=== PATIENT | female | born 1960 | race Caucasian/White ===

== ENCOUNTER 2018-01-02 08:46 | Emergency (ER) | payer BC, OTHER ==
[~2018-01-02] VITALS: Ht 157.5 cm; Wt 97.7 kg
[~2018-01-02 08:46] MED LIST: ADVAIR DISKUS1 DS1 IH; ALAVERT10 M1 PO; ALEVE220 MG PO; CATAFLAM50 MG PO; DESYREL 50MG50 MG PO; FLONASE NASAL S16 GM NS; MOBIC 7.5MG7.5 MG PO; PREMARIN0.9 MG PO; PROVENTIL0.09 MG/A1 IH; ZESTRIL2.5 MG PO
[2018-01-02 08:49] VITALS: BP 137/78; TEMP 98.7
[2018-01-02] MEDS ORDERED: LIPITOR 10MG10 MG PO (08:54)
[2018-01-02] MEDS ORDERED: GLUCOPHAGE500 MG/TAB PO (08:55)
[2018-01-02] MEDS ORDERED: WELLBUTRIN XL150 MG PO (08:55)
[2018-01-02 09:23] LABS: BASO # 0.1 (0.0-0.2); BASO % 0.4 % (0.0-2.0); EOS # 0.2 (0.0-0.7); EOS % 1.4 % (0-4.0); GRAN # 11.5 (1.4-6.5); GRAN % 85.5 % (42.2-75.2); HEMATOCRIT 44.3 % (37.0-47.0); HEMOGLOBIN 14.5 g/dl (12.5-16.0); LYMPH % 7.3 % (20.0-51.0); MEAN CELL VOLUME 92 fl (80.0-100.0); MEAN CORPUSCULAR HEMOGLOBIN 30 pg (27.0-31.0); MEAN CORPUSCULAR HGB CONC 33 g/dl (33.0-37.0); MEAN PLATELET VOLUME 8.8 fl (7.4-10.4); MONO # 0.7 (0.1-0.6); PLATELET COUNT 421 K/mm3 (130-400); RED BLOOD COUNT 4.83 M/mm3 (4.10-5.30); REDCELL DISTRIBUTION WIDTH-CV 13.6 % (11.5-14.5)
[2018-01-02 09:28] LABS: COLLECTION METHOD CLEAN CATCH
[2018-01-02 09:30] LABS: ALBUMIN 4.7 gm/dL (3.5-5.0); BILIRUBIN,TOTAL 0.8 mg/dL (0.0-1.0); CALCIUM 9.3 mg/dL (8.4-10.2); CREATININE, serum 0.77 mg/dL (0.52-1.25); POTASSIUM 4.4 mmol/L (3.4-5.0)
[2018-01-02 09:51] LABS: PH 5 (5-8); URINE APPEARANCE Clear; URINE BILIRUBIN Negative (NEGATIVE); URINE BLOOD Negative (NEGATIVE); URINE COLOR Yellow; URINE GLUCOSE Negative (NEGATIVE); URINE KETONE 1+ (NEGATIVE); URINE LEUKOCYTE ESTERASE Negative (NEGATIVE); URINE NITRATE Negative (NEGATIVE); URINE PROTEIN(semi-quant) Negative (NEGATIVE); URINE UROBILINOGEN Negative (NEGATIVE)
[2018-01-02 09:57] LABS: SQUAMOUS EPITHELIAL 20-50 /hpf
[2018-01-02 09:58] LABS: MUCOUS Present /lpf; URINE BACTERIA Occasional /hpf
[2018-01-02] MEDS ORDERED: FLAGYL500 MG PO (12:29)
[2018-01-02] MEDS ORDERED: CIPRO 500MG TA500 MG PO (12:29)
[2018-01-02] MEDS ORDERED: NORCO 325 MG-51 TAB PO (12:29)
[2018-01-02 12:37] VITALS: PULSE 100
== END 2018-01-02 12:39 | disposition home or self-care (01) ==
LOC: COL.ER 08:46
PROVIDERS: Emergency Medicine
DX: K57.92 Diverticulitis of intestine, part unspecified, without perforation or abscess without bleeding (principal); I10 Essential (primary) hypertension; E11.9 Type 2 diabetes mellitus without complications; E78.5 Hyperlipidemia, unspecified; J45.909 Unspecified asthma, uncomplicated; Z90.710 Acquired absence of both cervix and uterus; Z98.890 Other specified postprocedural states; Z79.84 Long term (current) use of oral hypoglycemic drugs
CPT/HCPCS: J2543; J2765; J3010; J7030; Q9967

== ENCOUNTER → 2023-11-30 | Outpatient (CLI) | payer BC ==
[~2023-11-30] MED LIST changes: +CIPRO 500MG TA500 MG PO; +FLAGYL500 MG PO; +GLUCOPHAGE500 MG/TAB PO; +LIPITOR 10MG10 MG PO; +NORCO 325 MG-51 TAB PO; +WELLBUTRIN XL150 MG PO
== END ==
LOC: MC.RAD 08:44
DX: Z12.31 Encounter for screening mammogram for malignant neoplasm of breast (principal)